=== PATIENT | female | born 1960 | race Caucasian/White ===

== ENCOUNTER 2018-04-25 10:49 | Emergency (ER) | payer BC, SELFPAY ==
[2018-04-25] VITALS (7 sets, daily range): BP systolic 139–170; BP diastolic 59–88; PULSE 62–86; RESP 10–16; TEMP 36.8; O2SAT 99–100
--- NOTE | 2018-04-25 11:00 | ED.GENADUL_ITS ---
Discharge Plan Disposition Patient Disposition: HOME Condition: Improving Discharge Details Chief Complaint: Chest Pain Clinical Impression: Anxiety Primary Care Provider: Letha Vanessa ED Provider: Darin Lam Home Meds and New Rx's Prescriptions: New lorazepam [Ativan] 0.5 mg tablet 0.5 mg PO DAILY PRN (Reason: anxiety) Qty: 5 RF: 0 Continue pravastatin 10 mg Tablet 10 mg PO DAILY RF: 0 levothyroxine 100 mcg Capsule 1 tab PO DAILY RF: 0 Discharge Instructions Instructions: Anxiety (ED) Additional Instructions: Our care management team will work to getting you an appointment with Letha Vanessa for follow-up in approximately 1 week. You may discuss further stress testing with her at that time. Please follow-up with [facility] mental health services as discussed with them today. May use the prescribed Ativan sparingly, if needed for severe anxiety. Medical Decision Making 57-year-old female presents with complaint of 4 weeks of near daily episodes of anterior chest tightness with severe anxiety and what she states is recurrent experiences of trauma from her childhood for which she is seeing an energy healer. She has normal vital signs. She is very anxious and tearful on exam. Differential diagnosis would include acute coronary syndrome as well as anxiety and mood disruption. Patient is given an anxiolytic, referred for EKG, chest x-ray, laboratory testing. Chest x-ray and EKG are unremarkable for acute process. Patient's laboratories including urinalysis are unremarkable. Her troponin is negative as well. Consistent with acute stress reaction She admits to ongoing severe anxieties due to what she describes as childhood trauma. The patient requests mental health interview in the ED stating she does not feel that she can go home. She was seen by mental health, deemed not to be a danger to herself or others and offered outpatient resources for counseling. I will offer her a small number of anxiolytics for home use. She is stable and appropriate to be discharged from the emergency department at this time. We will ask our care management team to work to get her a outpatient follow-up with her primary care Letha Tong in [place] ECG Data Attestation: I personally reviewed and interpreted this ECG (s) as follows: Interpretation: Normal sinus rhythm, the rate is 70, the QRS is narrow, there is no ST segment elevation. HPI General Mode of arrival: ambulatory . Date/Time Provider Initiated Documentation: 04/25/18 10:50 . Limitations to Documentation: no limitations . Information obtained by: patient and family . History of Present Illness 57 year old F presents to the emergency department with the chief complaint of Chest pain and anxiety, described as moderate, Quality is described as other (Tightness), and is localized to the chest. Patient reports no radiation. Patient started experiencing this day(s) and it has been intermittent. No relieving factors improve symptom(s), No exacerbating factors reported . Patient notes other (Anxiety and stress). Patient did receive the following treatments prior to arrival, none HPI Narrative: 57-year-old female states she was driving to an appointment to see a energy healer, who is working with the patient to manage what the patient describes as recurrent trauma from her childhood and PTSD. She states while driving she noticed worsening of some anterior chest tightness that she has been experiencing near daily for weeks time. She was tearful, worried, and presented to the ED. She describes it as a mild tightness is nonradiating it is been constant associated with her anxieties. She has not had any fever, rash , lower extremity pain or swelling. Related Data Home Medications Medication Instructions Recorded Confirmed levothyroxine 1 tab PO DAILY 04/25/18 04/25/18 lorazepam [Ativan] 0.5 mg PO DAILY PRN #5 tab 04/25/18 pravastatin 10 mg PO DAILY 04/25/18 04/25/18 Previous Rx's Medication Instructions Recorded lorazepam [Ativan] 0.5 mg PO DAILY PRN #5 tab 04/25/18 Allergies Allergy/AdvReac Type Severity Reaction Status Date / Time No Known Allergies Allergy Unverified 04/25/18 11:10 Review of Systems Review of Systems 8 systems reviewed and otherwise negative Exam Narrative Exam Narrative: GEN: awake, alert, oriented 3. Pleasant, well groomed, interactive, mildly anxious HEAD: Normocephalic, atraumatic ENT: Mucous membranes moist, oropharynx unremarkable, External ear exam unremarkable EYES: PERRL, EOMI NECK: Full ROM, no DEE DEE, no menigismus CHEST/RESP: Nontender, clear to auscultation bilateral, no wheeze/rhonchi/rales CARDIOVASCULAR: RRR, no murmur, rub trinity. 2+ Rad pulse bilateral ABDOMEN: Soft, nontender, no mass. +Bowel sounds EXT: Full ROM, no edema, no rash Neuro: Grossly normal neurologic exam, conversant, interactive. Psych: Speech fluent, thoughts congruent, affect normal to anxious
[2018-04-25] MEDS: LORazepam 2 MG/ML VIAL 0.5 MG IVP ×2 (11:25→12:55)
[2018-04-25 11:28] LABS: Abs Immature Grans 0.01 k/cumm (0.0-0.09); Absolute Basophil Count 0.02 k/cumm (0.0-0.2); Absolute Eosinophil Count 0.03 k/cumm (0.0-0.7); Absolute Lymphocyte Count 1.43 k/cumm (1.2-3.4); Absolute Monocyte Count 0.54 k/cumm (0.11-0.7); Absolute Neutrophil Count 3.69 k/cumm (1.2-6.7); Basophils % 0.3; Eosinophils % 0.5; HCT 40.7 % (36.0-46.0); HGB 13.7 g/dL (12.0-15.5); Immature Grans % 0.2; Mean Corp. HGB Concentration 33.7 g/dL (32.0-36.0); Mean Corpuscular Hemoglobin 30.2 pg (27.0-33.0); Mean Corpuscular Volume 89.6 fL (80-95); Mean Platelet Volume 10.6 fL (8.0-11.0); Monocytes % 9.4; Neutrophils % 64.6; Platelet Count 185 x1000/uL (130-400); RBC 4.54 m/cumm (4.00-5.20); RBC Distribution Width 13.1 % (11.7-14.6); White Blood Cell Count 5.72 k/cumm (4.4-10.8)
[2018-04-25 11:47] LABS: ALT 38 U/L (12-78); AST 25 U/L (15-37); Alkaline Phosphatase 75 U/L (46-116); Anion Gap 6.9 mmol/L (3-11); BUN 12 mg/dL (7-18); Bilirubin, Total 0.5 mg/dL (0.2-1.0); CO2 29.1 mmol/L (21.0-32.0); CREATININE 0.63 mg/dL (0.55-1.02); Calcium 9.1 mg/dL (8.5-10.1); Chloride 102 mmol/L (98-107); Glucose 98 mg/dL (70-100); Potassium 3.6 mmol/L (3.5-5.1); Sodium 138 mmol/L (136-145); Total Protein 7.4 g/dL (6.4-8.2)
--- NOTE | 2018-04-25 11:58 | DI.RAD_ITS ---
SYMPTOM/DIAGNOSIS: CHEST PAIN PA AND LATERAL CHEST: 04/25 The heart is not enlarged. The lungs are hyperinflated but clear. No pleural effusion seen. CONCLUSION: No evidence of acute disease.
[2018-04-25 12:03] LABS: Bilirubin Negative (Negative); Blood Negative (Negative); Clarity Clear; Glucose Negative (Negative); Ketones Trace mg/dL (Negative); Leukocyte Esterase Negative (Negative); Nitrite Negative (Negative); Urobilinogen 0.2 EU/dL (Up TO 0.2)
--- NOTE | 2018-04-25 12:03 | NUR.NOTE ---
Nursing Note: Report taken from YAJAIRA HOFF. Patient provided urine sample, back from DI. States she has a headache, given tylenol 1000mg per verbal order from Devendra Lam MD. Given water. Declines other comfort measures. Callbell within reach. at bedside. Continue to monitor.
[2018-04-25 12:21] LABS: Troponin I < 0.02 ng/mL (0.00-0.06)
[2018-04-25] MEDS: Acetaminophen 500 MG TAB 1000 MG (12:36)
--- NOTE | 2018-04-25 13:36 | PDOC.MHCN ---
Date of service: 04/25/18 Time of Service: 13:36 Mental Health Crisis Note Presenting Issue How did you arrive at the ED and why did you come: Patient arrived via with concerns that she was having a heart attack. After medical testing it was found that was not having a heart attack but was suffering from repressed traumatic memories. Precipitating Factors Patient denies current SI/HI but admits to having thoughts back in high school. Patient states that memories that have been repressed for years resurfaced about two years ago when she saw her cousin at a restaurant with her . She states that she has been seeing an energy healer for such memories and feelings for some time now but is looking for further assistance. Disposition BEHAVIOR: No abnormal behavior to report EYE CONTACT: Direct MOOD: Tearful/Sad AFFECT: Broad APPETITE: Good SLEEP(trouble falling/staying asleep: Good Plan This development writer gave the patient the phone number and address to [facility] in [place], [place] as that is the town in which she resides. She states that she will give them a call to set up an appointment for counseling/therapy. Signature Clinician's Name/Title: Aby Ambriz - [facility] Emergency Clinician
--- NOTE | 2018-04-25 13:44 | PDOC.MHCN_ITS ---
Date of service: 04/25/18 Time of Service: 13:36 Mental Health Crisis Note Presenting Issue How did you arrive at the ED and why did you come: Patient arrived via with concerns that she was having a heart attack. After medical testing it was found that was not having a heart attack but was suffering from repressed traumatic memories. Precipitating Factors Patient denies current SI/HI but admits to having thoughts back in high school. Patient states that memories that have been repressed for years resurfaced about two years ago when she saw her cousin at a restaurant with her . She states that she has been seeing an energy healer for such memories and feelings for some time now but is looking for further assistance. Disposition BEHAVIOR: No abnormal behavior to report EYE CONTACT: Direct MOOD: Tearful/Sad AFFECT: Broad APPETITE: Good SLEEP(trouble falling/staying asleep: Good Plan This principal technical writer gave the patient the phone number and address to [facility] in [place], [place] as that is the town in which she resides. She states that she will give them a call to set up an appointment for counseling/ therapy. Signature Clinician's Name/Title: Aby Ambriz - [facility] Emergency Clinician
--- NOTE | 2018-04-26 08:47 | CMPROGNOTE_ITS ---
Care Management Progress Note 04/26/18-Pt seen with chest pain/anxiety on 04/25/[address] Jah Bhatia. F/U faxed to Pt's PCP, Letha Vanessa at [facility].
== END 2018-04-25 13:40 | disposition home or self-care (01) ==
PROVIDERS: Emergency Provider Emergency Medicine; PCP General Practice
DX: F41.9 Anxiety disorder, unspecified (principal); F43.9 Reaction to severe stress, unspecified
CPT/HCPCS: 36415; 80053; 93005; 96374; 96376; 99285; 71046; 81003; 84484; 85025; 93010; 99284; J2060

== ENCOUNTER 2018-06-27 12:52 | Emergency (ER) | payer BC, SELFPAY ==
[2018-06-27] VITALS (11 sets, daily range): BP systolic 123–136; BP diastolic 67–78; PULSE 69–91; RESP 12–20; TEMP 36.8; O2SAT 98–100
--- NOTE | 2018-06-27 13:05 | DI.RAD_ITS ---
SYMPTOMS/DIAGNOSIS: CHEST PAIN PA AND LATERAL CHEST: Comparison is 04/25/18. The heart is normal in size. The lungs are clear. The mediastinal structures and pleura appear intact. IMPRESSION: Normal chest.
[2018-06-27 13:23] LABS: Abs Immature Grans 0.01 k/cumm (0.0-0.09); Absolute Basophil Count 0.02 k/cumm (0.0-0.2); Absolute Eosinophil Count 0.03 k/cumm (0.0-0.7); Absolute Lymphocyte Count 1.35 k/cumm (1.2-3.4); Absolute Monocyte Count 0.67 k/cumm (0.11-0.7); Absolute Neutrophil Count 5.53 k/cumm (1.2-6.7); Basophils % 0.3; Eosinophils % 0.4; HCT 41.5 % (36.0-46.0); HGB 14.2 g/dL (12.0-15.5); Immature Grans % 0.1; Lymphocytes % 17.7; Mean Corp. HGB Concentration 34.2 g/dL (32.0-36.0); Mean Corpuscular Hemoglobin 30.3 pg (27.0-33.0); Mean Corpuscular Volume 88.7 fL (80-95); Mean Platelet Volume 10.6 fL (8.0-11.0); Monocytes % 8.8; Neutrophils % 72.7; Platelet Count 215 x1000/uL (130-400); RBC 4.68 m/cumm (4.00-5.20); White Blood Cell Count 7.61 k/cumm (4.4-10.8)
[2018-06-27] MEDS: Aspirin 81 MG CHEW 324 MG CH (13:23)
[2018-06-27] MEDS: Normal Saline Flush 10 ML SYR IVP (13:24)
[2018-06-27 13:52] LABS: ALT 38 U/L (12-78); AST 21 U/L (15-37); Alkaline Phosphatase 76 U/L (46-116); Anion Gap 9.9 mmol/L (3-11); BUN 18 mg/dL (7-18); Bilirubin, Total 0.5 mg/dL (0.2-1.0); CO2 28.1 mmol/L (21.0-32.0); CREATININE 0.71 mg/dL (0.55-1.02); Calcium 9.1 mg/dL (8.5-10.1); Chloride 102 mmol/L (98-107); Glucose 118 mg/dL (70-100); Magnesium 1.8 mg/dL (1.8-2.4); Potassium 3.5 mmol/L (3.5-5.1); Sodium 140 mmol/L (136-145); TSH (W/Ref FT4) 10.91 uIU/mL (0.358-3.74); Total Protein 7.6 g/dL (6.4-8.2); Troponin I < 0.02 ng/mL (0.00-0.06)
--- NOTE | 2018-06-27 14:05 | W.ED.PROC ---
Procedures Other Description: EKG 13: 5 Rate 87, sinus rhythm, intervals normal, no significant ST elevations or depressions, no Q waves. Inverted T wave in V1 and V2. Questionable left atrial enlargement with atypical P waves. No other abnormalities
[2018-06-27 14:08] LABS: FREE T4 1.05 ng/dL (0.76-1.46)
--- NOTE | 2018-06-27 14:12 | ED.GENADUL_ITS ---
Discharge Plan Disposition Patient Disposition: HOME Condition: Fair Discharge Details Chief Complaint: Palpitatns Clinical Impression: Heart palpitations, Chest tightness Primary Care Provider: Letha Vanessa ED Provider: Nina Hillman Home Meds and New Rx's Prescriptions: Continue pravastatin 10 mg Tablet 10 mg PO DAILY RF: 0 levothyroxine 100 mcg Capsule 1 tab PO DAILY RF: 0 lorazepam [Ativan] 0.5 mg tablet 0.5 mg PO DAILY PRN (Reason: anxiety) Qty: 5 RF: 0 Discharge Instructions Instructions: Palpitations (ED) Additional Instructions: Encourage hydration. Please take medications as prescribed. You have declined further testing at this time. Please discuss further testing with primary care. Please follow up with primary care within the next week. If you have recurrence of symptoms, experience chest pain, shortness of breath or other new/worsening symptoms please seek care urgently once again. Referrals: Letha Vanessa [Primary Care Provider] - Discharge Data Discharge Date/Time-TO BE ENTERED AT DEPARTURE: 06/27/18 17:22 Medical Decision Making <Shivam Mayo NP - Last Filed: 06/28/18 08:47> Patient presenting the emergency department for chief complaint of palpitations and chest tightness. Patient does state some increased discomfort with deep inspiration but otherwise denies any cold symptoms. Patient does state similar episodes in the past with negative workups including recent negative workup at [facility] for similar complaint. Patient states that this started occurring 2 days ago. Patient denies any injury or trauma. Patient did report medical staff services manager recent of her father from heart attack. Patient does state that she has not taken her thyroid medication the past couple days and does have some thyroid issues patient appears mildly anxious but otherwise physical exam is unremarkable. Plan to check labs including troponin and thyroid along with chest x-ray. Patient given aspirin pending results. At time of my assessment patient stated she was asymptomatic. Review of previous records shows some potential psych or anxiety component to her last emergency department visit was similar presentation. Patient does state that she followed up with her primary care but did not follow-up with [facility] due to living in [place] but saw a spiritual energy healer patient otherwise stable with no emergent findings so I do not feel that any emergent interventions are needed. Review of initial labs shows negative troponin, elevated TSH but normal free T4 , otherwise nondiagnostic labs. Second troponin was ordered for 3-hour testing and patient reassessed and states that she remains asymptomatic at this time. Plan of care transferred to Krystle GUERRA for review of second troponin and repeat EKG along with final disposition, any further stabilization or treatments as needed. <CHARLIE Murdock - Last Filed: 06/27/18 17:27> Assumed care of patient from Noel Mayo NP with second troponin pending for evaluation of recurrent chest tightness and palpitation. Reviewed recent ER visits both here as well as at [facility]. At that time, patient has been complaining of PTSD type symptoms. She was evaluated by mental health. Outpatient mental health was established but is unclear if the patient has actually followed through with these. She has been feeling a healer. When she was seen here last on 05-11, patient has been having these experiences daily for the previous 4 weeks. Was treated with anxiety lytic. Patient was seen on 06/01/2018 by cardiology at [facility]. In 2016, patient had similar symptoms and was placed on a rhythm monitor with no acute abnormalities noted. Patient at that time also underwent a negative exercise stress test with no evidence of ischemia. The patient is a change thyroid medication was increased. They are concerned that the symptoms may have been associated with recent increase in stress versus thyroid dysregulation which was improved with medication. Repeat troponin remains less than 0.02. I discussed these findings with the patient. We also discussed patient's history, recent cardiology report and previous cardiology visits. I did offer the patient Zile patch testing as her palpitations has returned and this seems to be her primary complaint. At the time she was seen by cardiology, they did not recommend further testing as she has been symptom-free once her stress have been improved. However, as this has recurred, we can address this and patient declined. We discussed risk/benefits of Zile patch testing as well as stress testing patient is declining either at this time. She prefers to think about further testing and follow-up with her primary care. A copy of the patient's labs has been sent with her so that she may follow-up with primary care. She will contact primary care tomorrow to schedule follow-up. We discussed new/worsening symptoms and when to seek care urgently once again. All the questions and concerns were addressed and she is in agreement with this plan. HPI <Shivam Mayo NP - Last Filed: 06/28/18 08:47> General Mode of arrival: ambulatory . Date/Time Provider Initiated Documentation: 06/27/18 13:00 . Limitations to Documentation: no limitations . Information obtained by: patient and RN notes reviewed . History of Present Illness 57 year old F presents to the emergency department with the chief complaint of Chest Pain, described as similar to prior episodes, Quality is described as other (tightness, but no discomfort currently), and is localized to the chest. Patient extremity (left upper). Patient started experiencing this day (s) (2) and it has been intermittent. No relieving factors improve symptom(s ), No exacerbating factors reported . Patient did receive the following treatments prior to arrival, none Related Data Home Medications Medication Instructions Recorded Confirmed levothyroxine 1 tab PO DAILY 04/25/18 04/25/18 lorazepam [Ativan] 0.5 mg PO DAILY PRN #5 tab 04/25/18 pravastatin 10 mg PO DAILY 04/25/18 04/25/18 Previous Rx's Medication Instructions Recorded lorazepam [Ativan] 0.5 mg PO DAILY PRN #5 tab 04/25/18 Allergies Allergy/AdvReac Type Severity Reaction Status Date / Time No Known Allergies Allergy Unverified 04/25/18 11:10 General Stated Complaint: Palpitatns INA: 2 Review of Systems <Shivam Mayo NP - Last Filed: 06/28/18 08:47> Constitutional Denies chills, Denies fatigue, Denies fever(s) and Denies malaise Cardiovascular Reports as per HPI, Reports chest pain, Denies chest pain with activity, Denies syncope, Denies irregular heart rhythm, Reports palpitations and Denies dyspnea Respiratory Denies cough, Denies hemoptysis, Reports pain on inspiration and Denies dyspnea Gastrointestinal Denies abdominal pain, Denies nausea and Denies vomiting Neurologic Denies syncope Psychiatric Denies anxiety Endocrine Denies cold intolerance, Denies fatigue, Denies heat intolerance and Reports palpitations Exam <Shivam Mayo NP - Last Filed: 06/28/18 08:47> Const General: cooperative, healthy appearing, comfortable, no acute distress, not diaphoretic and not ill appearing Nutritional Appearance: average body habitus Orientation: alert, awake and oriented x3 Limitations: mental status not altered Neck Neck: normal visual inspection, full ROM, trachea midline, supple and no anterior neck swelling Thyroid: thyroid normal Carotids: normal carotid upstroke and no bruits Chest Chest: normal inspection of the chest Resp Effort & Inspection: normal respiratory effort and able to speak in complete sentences Auscultation: clear to auscultation bilaterally Cardio Jugular venous pressure: no JVD Palpation: normal PMI Rate: regular rate Rhythm: regular rhythm Heart Sounds: S1 normal, S2 normal, no click, no gallops, no murmurs and no rubs Bruits: no abdominal aortic bruits and no carotid bruits Pulses: radial pulses present bilaterally 2+ GI Inspection: normal to inspection Palpation: soft, no aortic enlargement, no pulsatile masses and nontender Auscultation: normal bowel sounds Skin General skin exam: no rashes or lesions noted Neuro General: alert, awake, oriented x3, tone normal and moves all extremities Course <Shivam Mayo NP - Last Filed: 06/28/18 08:47> Vital Signs Temperature 36.8 C 06/27/18 12:55 Pulse 91 H 06/27/18 12:55 Respiratory Rate 20 06/27/18 12:55 Blood Pressure 131/78 06/27/18 12:55 Pulse Oximetry 98 06/27/18 12:55 Temperature 36.8 C 06/27/18 12:55 Temperature Source Temporal Artery Scan 06/27/18 12:55 Pulse 69 06/27/18 13:46 Pulse 77 06/27/18 13:50 Respiratory Rate 20 06/27/18 13:50 Respiratory Effort Non-Labored 06/27/18 12:55 Blood Pressure 136/67 06/27/18 13:46 Blood Pressure Mean 82 06/27/18 13:46 Blood Pressure Position Sitting 06/27/18 12:55 Pulse Oximetry 98 06/27/18 13:50 Oxygen Delivery Method Room Air 06/27/18 12:55 Oxygen Flow Rate 0 06/27/18 12:55 Pain Level 5 06/27/18 13:34 Lab/Test Results Lab/Test Results: Laboratory Tests Range/Units 06/27/18 06/27/18 13:20 13:20 WBC (4.4-10.8) k/cumm 7.61 RBC (4.00-5.20) m/cumm 4.68 Hgb (12.0-15.5) g/dL 14.2 Hct (36.0-46.0) % 41.5 MCV (80-95) fL 88.7 MCH (27.0-33.0) pg 30.3 MCHC (32.0-36.0) g/dL 34.2 RDW (11.7-14.6) % 13.0 Plt Count (130-400) x1000/uL 215 MPV (8.0-11.0) fL 10.6 Immature Gran % 0.1 Neutrophils % 72.7 Lymphocytes % 17.7 Monocytes % 8.8 Eosinophils % 0.4 Basophils % 0.3 Absolute Neutrophils (1.2-6.7) k/cumm 5.53 Absolute Lymphocytes (1.2-3.4) k/cumm 1.35 Absolute Monocytes (0.11-0.7) k/cumm 0.67 Absolute Eosinophils (0.0-0.7) k/cumm 0.03 Absolute Basophils (0.0-0.2) k/cumm 0.02 Sodium (136-145) mmol/L 140 Potassium (3.5-5.1) mmol/L 3.5 Chloride (98-107) mmol/L 102 Carbon Dioxide (21.0-32.0) mmol/L 28.1 Anion Gap (3-11) mmol/L 9.9 BUN (7-18) mg/dL 18 Creatinine (0.55-1.02) mg/dL 0.71 Estimated GFR/1.73 m2 (mL/min/1.73m2) >= 60.00 Glucose (70-100) mg/dL 118 H Calcium (8.5-10.1) mg/dL 9.1 Magnesium (1.8-2.4) mg/dL 1.8 Total Bilirubin (0.2-1.0) mg/dL 0.5 AST (15-37) U/L 21 ALT (12-78) U/L 38 Alkaline Phosphatase (46-116) U/L 76 Troponin I (0.00-0.06) ng/mL < 0.02 Total Protein (6.4-8.2) g/dL 7.6 Albumin (3.4-5.0) g/dL 4.0 TSH (0.358-3.74) uIU/mL 10.91 H Free T4 (0.76-1.46) ng/dL 1.05 Sign Out <Shivam Mayo NP - Last Filed: 06/28/18 08:47> Sign Out Data: Sign Out Comment: Patient pending second Troponin and repeat EKG along with disposition and any further treatments as needed for stabilization or change in patient condition. Plan of care discussed with Krystle GUERRA Last updated by Shivam Mayo NP at 06/27/18 15:56
[2018-06-27 16:46] LABS: Troponin I < 0.02 ng/mL (0.00-0.06)
== END 2018-06-27 17:22 | disposition home or self-care (01) ==
LOC: ER 17:32
PROVIDERS: Nurse Practitioner Family; Emergency Provider Physician Assistant; PCP General Practice
DX: R00.2 Palpitations (principal); R07.89 Other chest pain; Z53.29 Procedure and treatment not carried out because of patient's decision for other reasons
CPT/HCPCS: 36415; 80053; 93005; 99284; 71046; 83735; 84439; 84443; 84484; 85025; 93010

== ENCOUNTER 2019-11-27 10:51 | Outpatient (REF) | payer BC, SELFPAY ==
--- NOTE | 2019-11-27 10:00 | PAPFT_PTH ---
PATIENT: Emeli Amanda LOC: N U#:[id number] AGE/SX: 59/F ROOM: RE11/27/[address]: Chiquita Altamirano DO : 1960 BED: DIS: 11/27/2019 SPEC #: [id number] RECD: 11/27/19 12:17 STATUS: MARILIA REQ #: [id number] FRANCES: 11/27/19 10:[address]: Chiquita Altamirano DEPT: [facility] Cytology RECD BY: Christian Segura ENTERED: 11/27/19 12:18 SP TYPE: PAPFT OTHR DR: Letha Vanessa Tissues: 1 - CX/ENDOCX FOR PAP SMEARS Procedures: PAP THIN PREP/[facility] Screening Comments: [id number] (UNSATISFACTORY FOR EVALUATION)
== END 2019-11-27 11:11 ==
LOC: LBN 10:51
PROVIDERS: PCP General Practice; Visit Provider Obstetrics & Gynecology
DX: Z12.4 Encounter for screening for malignant neoplasm of cervix (principal); Z11.51 Encounter for screening for human papillomavirus (HPV); R87.615 Unsatisfactory cytologic smear of cervix
CPT/HCPCS: 88142